=== PATIENT | male | born 1950 | race Caucasian/White ===

== ENCOUNTER 2020-05-22 19:06 | Inpatient (IN) | payer OTHER ==
[2020-05-22] VITALS (10 sets, daily range): BP systolic 115–167; BP diastolic 64–116
[~2020-05-22] VITALS: Ht 167.6 cm; Wt 64.4 kg
[2020-05-22 19:27] LABS: ABSOLUTE BASOPHILS 0.1 thou/uL (0.0-0.2); ABSOLUTE MONOCYTES 0.5 thou/uL (0.0-1.2); ABSOLUTE NEUTROPHILS 9.6 thou/uL (1.6-8.1); BASOPHILS 0.5 %; EOSINOPHILS 0.1 %; HEMATOCRIT 39.6 % (42.0-52.0); HEMOGLOBIN 13.2 gm/dL (14.0-18.0); LYMPHOCYTES 9.2 %; MCH 29.7 pg (26.0-34.0); MCHC 33.4 g/dL (28.0-37.0); MCV 88.8 fL (80.0-100.0); MONOCYTES 4.5 %; MPV 9.1 fl. (7.2-11.1); NUCLEATED RBCS 0 /100WBC; PLATELET COUNT* 258 thou/uL (150-400); POLYS 85.7 %; RBC 4.46 mil/uL (4.50-6.00); RDW-CV 13.1 % (10.5-14.5); WBC 11.2 thou/uL (4.0-11.0)
[2020-05-22] MEDS ORDERED: GLUCOPHAGE1000 MG PO (19:31)
[2020-05-22 19:36] LABS: ANION GAP 12 mmol/L (7-16); BUN 21 mg/dL (7-18); CHLORIDE 100 mmol/L (98-107); CO2 27 mmol/L (21-32); CREATININE 1.2 mg/dL (0.6-1.3); GLUCOSE 261 mg/dL (70-99); POTASSIUM 3.7 mmol/L (3.5-5.1); SODIUM 139 mmol/L (136-145)
[2020-05-22 19:38] LABS: APTT 26.8 Seconds (25.0-31.3); INR 1.1
[2020-05-22 19:42] LABS: ALBUMIN 3.9 g/dL (3.4-5.0); ALKALINE PHOSPHATASE 67 U/L (46-116); CHOLESTEROL 188 mg/dL (<200); HDL CHOLESTEROL 42 mg/dL (>40); LDL CHOLESTEROL 117 mg/dL (<100); SGOT 44 U/L (15-37); SGPT 26 U/L (30-65); TC:HDL 4.5 Ratio (Not establshd); TOTAL BILIRUBIN 0.4 mg/dL (<0.1-1.0); TRIGLYCERIDE 148 mg/dL (<150); VLDL 30 mg/dL (<40)
[2020-05-22 19:44] LABS: SERUM ASSESSMENT Clear
[2020-05-22 20:56] LABS: PLATELET ESTIMATE ADEQUATE
[2020-05-23] VITALS (27 sets, daily range): BP systolic 93–127; BP diastolic 45–75
[2020-05-23] MEDS ORDERED: PRINIVIL10 MG PO (00:56)
[2020-05-23] MEDS ORDERED: LEXAPRO 10 MG T10 M2 PO (00:58)
[2020-05-23 03:38] LABS: ABSOLUTE LYMPHOCYTES 1.4 thou/uL (0.8-5.3); ABSOLUTE MONOCYTES 0.7 thou/uL (0.0-1.2); ABSOLUTE NEUTROPHILS 7.8 thou/uL (1.6-8.1); BASOPHILS 0.3 %; EOSINOPHILS 0.1 %; HEMOGLOBIN 12.2 gm/dL (14.0-18.0); LYMPHOCYTES 14.4 %; MCH 30.5 pg (26.0-34.0); MCHC 34.7 g/dL (28.0-37.0); MCV 87.8 fL (80.0-100.0); MONOCYTES 7.2 %; MPV 8.9 fl. (7.2-11.1); NUCLEATED RBCS 0 /100WBC; PLATELET COUNT* 230 thou/uL (150-400); RBC 3.99 mil/uL (4.50-6.00); RDW-CV 12.9 % (10.5-14.5)
[2020-05-23 03:48] LABS: CALCIUM 8.2 mg/dL (8.5-10.1); CREATININE 0.7 mg/dL (0.6-1.3); POTASSIUM 3.5 mmol/L (3.5-5.1)
--- NOTE | 2020-05-23 04:32 | NUR ---
RECIEVED PT FROM URINALYSIS TECHNICIAN AT 2114H. PTCA DONE AT LAD. ON NC AT 2LPM AND TOLERATED. SINUS BRADYCARIA NOTED. SEEN BY CARDIOLOGY, ASKED FOR HOSPITALIST CONSULT. INFORMED HIMS WITH ORDER CARRIED OUT. PT STILL COMPLAINED OF CHEST PAIN AFTER HYDROCODONE, CARDIOLOGY INFORMED WITH ORDER CARRIED OUT. PRN MORPHIN GIVEN, PT RESTED WELL. NO BLEEDING NOTED. CONTINUE MONITORING AND TOWARD GOALS.
--- NOTE | 2020-05-23 10:31 | CARD ---
[address] [address] CARDIAC CATH REPORT Name: BLAZEULISSES Room: 002 ADM IN M.R.#: [id number] Admission: 05/22/20 Attend Phys: Aravind Munson MD, Discharge: Date of : 54 Report #: [id number] THIS REPORT FOR: //name// cc: PHOEBE - Family physician unknown FAM - Family physician unknown ~ APPROVED REPORT Study performed: 05/22/2020 19:10:45 Patient Details Patient Status: ED Room #: ICU-2 The patient is a 69 year-old male Event Personnel Aravind Munson Edger Hand, Kelsey Marquez RN Drying Room Attendant, Margarito Fernandez FLORIST MANAGER Scrub, Sivan Sebastian RTR Monitor Procedures Performed Art Access - R femoral artery, Left Heart Cath w/or w/o Coronaries LHC, ANNA Place w/wo Plasty Single LAD , Hemostasis w/ Angioseal Indication STEMI Risk Factors Hypertension, Diabetes Admission/Lab Medications/Medications given during procedure Angiomax IV 10.5 ml, Angiomax Drip IV 24.85 ml per hr, Angiomax IV 3 ml, Effient PO 60 mg, Aspirin PO 162 mg Procedure Narrative The patient was brought emergently to the Cardiac Catheterization Laboratory and was prepped and draped in a sterile manner. The right femoral was infiltrated with 2% Lidocaine subcutaneous anesthesia. A 6F [place] sheath was inserted into the right femoral artery. Coronary angiography was performed using coronary diagnostic catheters. The right coronary system was accessed and visualized with a 6F JR4 catheter. The left coronary system was accessed and visualized with a 6F JL4 catheter. The left ventricle was accessed and visualized with a 6F Pigtail catheter. Left ventricular/Aortic Valve gradient assessed via catheter pullback. Left ventriculogram was performed in GAMBOA projection. Pre-[place] [address] CARDIAC CATH REPORT Name: ULISSES THAKUR Room: [address] IN M.R.#: [id number] Admission: 05/22/20 Attend Phys: Aravind Munson MD, Discharge: Date of : 54 Report #: [id number] was performed . Closure device was deployed with a 6 Fr Angioseal STS. The patient tolerated the procedure well and there were no complications associated with the procedure. There was no hematoma. Intraoperative Conscious Sedation Sedation start time: 19:57 Case end Time: 20:49 Fentanyl 50 mcg Versed 3 mg Fluoro Time: 14 minutes Dose: DAP [id number] cGycm2 2130 mGy Contrast Type and Amount: Visipaque 220 ml Diagnostic Cath Left Main 40% distal narrowing LAD 100% mid LAD occlusion with prominent intraluminal thrombus with 50% proximal LAD narrowing and and multiple areas of 40% distal LAD narrowing; there was 90% stenosis in the proximal portion of moderate-sized first diagonal branch Circumflex Prominent though nondominant vessel with 90% mid vessel stenosis Right Coronary Dominant vessel with 40% proximal and distal narrowings Left Ventriculography The left ventricle is normal in size with contractility. The left ventricular ejection fraction is estimated to be 35-40%. Left ventricular wall motion abnormalities are present. There is no mitral insufficiency. There is akinesis of the anteroapical wall segment Hemodynamics The aortic pressure is 122/56 mmHg with a mean of 67 mmHg. The left ventricular pressure is 121/-1 mmHg with a mean of mmHg. The left ventricular end diastolic pressure is 23 mmHg. PCI Technique Lesion Anticoagulation was achieved with Angiomax. Patient was preloaded with Angiomax IV 10.5 ml. Percutaneous coronary intervention was performed on the mid left anterior descending artery segment. The lesion stenosis prior to intervention was 100% with LINDY 0 flow. A 6F XB LAD 3.5 Guide Catheter was used to engage the lm ostium. A ProwaterFlex 180CM Interventional Guidewire was [place] [address] CARDIAC CATH REPORT Name: ULISSES THAKUR Room: [address] IN .R.#: [id number] Admission: 05/22/20 Attend Phys: Aravind Munson MD, Discharge: Date of : 54 Report #: [id number] BALLOON DILATION A Balloon catheter Trek RX 2.25 X 12 was inserted and inflated up to 12.00atm for 11seconds. Additional Inflation: 12.00atm for 15seconds. STENT DEPLOYMENT A drug-eluting stent Xience Zonia 2.37Q42sq was inserted and inflated up to 12.00atm for 22seconds. Additional Inflation: 14.00atm for 14seconds. POST STENT DEPLOYMENT BALLOON DILATION A Balloon catheter NC Euphora 2.25x8 was inserted and inflated up to 18.00atm for 19seconds. Additional Inflation: 22.00atm for 15seconds. Additional Inflation: 15.00atm for 12seconds. Final angiography reveals 10 % stenosis with LINDY 3 flow. Conclusion 1. Acute anterior wall ST segment elevation myocardial infarction 2. Severe coronary artery disease characterized by the following: A 100% mid LAD occlusion with prominent intraluminal thrombus; there was 50% proximal with 40% distal LAD narrowing; there was 90% stenosis of the proximal portion of a moderate-sized first diagonal branch B prominent though nondominant circumflex with 90% mid vessel stenosis C dominant right coronary with 40% proximal and distal narrowings 2. Moderate impairment in global LV function, estimated ejection fraction 35 - 40% with anteroapical akinesis 4. Moderate elevation of left ventricular end-diastolic pressure at rest 5. Successful PCI with deployment of a drug-eluting stent at the site of 100% mid LAD occlusion with 10% residual narrowing LINDY-3 flow to the distal vessel and no residual thrombus. Recommendations Cardiac [place] [address] CARDIAC CATH REPORT Name: ULISSES THAKUR Room: [address] IN M.R.#: [id number] Admission: 05/22/20 Attend Phys: Aravind Munson MD, Discharge: Date of : 54 Report #: [id number] Aggressive Medical Therapy Medications Administered Aspirin (any) Prasugrel Diagnostic Cath Approved by: Aravind Munson MD Date/Time: 05/23/2020 10:27:27 <ELECTRONICALLY SIGNED> By: Aravind Munson MD, FACC 05/23/20 103 30 103Aravind Munson MD, FACC /INF
--- NOTE | 2020-05-23 12:20 | 2DMMODE ---
[place] [address] 2 D/M-MODE ECHOCARDIOGRAM Name: ULISSES THAKUR Room: 002-P ADM IN .R.#: [id number] Admission: 05/22/20 Attend Phys: Raman Dillard Discharge: Date of : 54 Date of Service: 05/23/20 1220 Report #: [id number] THIS REPORT FOR: cc: FAM - Family physician unknown FAM - Family physician unknown Aravind Munson MD [facility] ~ APPROVED REPORT Study performed: 05/23/2020 09:35:57 EXAM: Comprehensive 2D, Doppler, and color-flow Echocardiogram Patient Location: In-Patient Room #: 002 Status: routine BSA: 1.73 HR: 65 bpm BP: 96/61 mmHg Rhythm: NSR Other Information Study Quality: Good Indications Acute LA 2D Dimensions IVSd: 9.22 (7-11mm) LVOT Diam: 20.10 (18-24mm) LVDd: 48.80 mm PWd: 9.91 (7-11mm) Ascending Ao: 25.94 (22-36mm) LVDs: 28.20 (25-40mm) Aortic Root: 37.56 mm Volumes Left Atrial Volume (Systole) LA ESV Index: 30.40 mL/m2 Aortic Valve AoV Peak Nik.: 1.23 m/s AO Peak Gr.: 6.10 mmHg LVOT Max P.68 mmHg AO Mean Gr.: 3.36 mmHg LVOT Mean P.14 mmHg LVOT Max V: 1.08 m/s AO V2 VTI: 26.09 cm LVOT Mean V: 0.66 m/s ELIAZAR (VTI): 2.87 cm2 LVOT V1 VTI: 23.60 [place] [address] 2 D/M-MODE ECHOCARDIOGRAM Name: ULISSES THAKUR Room: [address] IN M.R.#: [id number] Admission: 05/22/20 Attend Phys: Raman Dillard Discharge: Date of : 54 Date of Service: 05/23/20 1220 Report #: [id number] Mitral Valve E/A Ratio: 1.13 MV Decel. Time: 243.27 ms MV E Max Nik.: 0.62 m/s MV PHT: 70.55 ms MVA (PHT): 3.12 cm2 TDI E/Lateral E': 5.64 E/Medial E': 6.20 Medial E' Nik.: 0.10 m/s Lateral E' Nik.: 0.11 m/s Pulmonary Valve PV Peak Nik.: 0.92 m/s PV Peak Gr.: 3.38 mmHg Tricuspid Valve RAP Estimate: 5.00 mmHg TR Peak Gr.: 29.36 mmHg RVSP: 34.00 mmHg PA Pressure: 34.00 mmHg Left Ventricle The left ventricle is normal size. Regional wall motion abnormalities are noted with distal septal and anteroapical hypo-akinesis. There is normal left ventricular wall thickness. Left ventricular systolic function is moderately decreased. LVEF is 40%. The left ventricular diastolic function is normal. Right Ventricle The right ventricle is normal size. The right ventricular systolic function is normal. Atria The left atrium size is normal. The right atrium size is normal. Aortic Valve The aortic valve is normal in structure. Trace aortic regurgitation. There is no aortic valvular stenosis. Mitral Valve The mitral valve is normal in structure. Mild mitral regurgitation. No evidence of mitral valve stenosis. Tricuspid Valve The tricuspid valve is normal in structure. Mild tricuspid regurgitation. [place] [address] 2 D/M-MODE ECHOCARDIOGRAM Name: ULISSES THAKUR Room: 002-P [facility] IN [facility].#: [id number] Admission: 05/22/20 Attend Phys: Raman Dillard Discharge: Date of : 54 Date of Service: 05/23/20 1220 Report #: [id number] Pulmonic Valve The pulmonary valve is normal in structure. Trace pulmonic regurgitation. Great Vessels The aortic root is normal in size. IVC is normal in size and collapses >50% with inspiration. Pericardium There is no pericardial effusion. <Conclusion> The left ventricle is normal size. There is normal left ventricular wall thickness. Left ventricular systolic function is moderately decreased. LVEF is 40%. The left ventricular diastolic function is normal. The right ventricle is normal size. The left atrium size is normal. The aortic valve is normal in structure. The mitral valve is normal in structure. Mild mitral regurgitation. The tricuspid valve is normal in structure. Mild tricuspid regurgitation. Mild pulmonary hypertension. IVC is normal in size and collapses >50% with inspiration. There is no pericardial effusion. Regional wall motion abnormalities are noted with distal septal and anteroapical hypo-akinesis. <ELECTRONICALLY SIGNED> By: Aravind Munson MD, FACC 05/23/20 1220 1220 1220 Aravind Munson MD, FACC /INF
--- NOTE | 2020-05-23 14:32 | EKG ---
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
--- NOTE | 2020-05-23 15:22 | NUR ---
ICU rounds: Cath yesterday, Pt to have another cardiology procedure tomorrow. Anticipate dc on Wednesday. CM spoke with card nurse, plan is for Pt to dc on Wednesday, then f/u with Dr Munson next week. 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 Independent, no DME. No hx of or SNF. Cards to provide Pt with Effient samples and Good Rx card, and schedule f/u visit for next week. 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 Discussed plans with Pt, Pt says he is in agreement with POC. Following.
--- NOTE | 2020-05-23 16:18 | CON ---
[address] [address] CONSULTATION Name: ULISSES THAKUR Room: [address] ADM IN M.R.#: [id number] Admission: 05/22/20 Attend Phys: Aravind Munson MD, Discharge: Date of : 54 Report #: [id number] THIS REPORT FOR: //name// cc: FAM - Family physician unknown FAM - Family physician unknown ~ THIS REPORT FOR: //name// CC: PHOEBE unknown Aravind Munson DATE OF SERVICE: 05/22/2020 CARDIOLOGY CONSULTATION The patient admitted to the ICU 2 on 05/22/2020. HISTORY OF PRESENT ILLNESS: The patient is a 69-year-old [place] male from [place]. He developed chest pain this afternoon, which persisted and he was ultimately transferred to [facility] Emergency Room by paramedics with electrocardiographic evidence suggesting acute anterior injury. This persisted in the ER and he received aspirin and nitrates. The pain did not resolve and EKG changes persisted. He describes prior problems of diabetes and hypertension, but denies cigarette smoking. He describes taking metformin and antihypertensive medicine as well as psychotropic medicine, which he is uncertain. PHYSICAL EXAMINATION: GENERAL: Demonstrated an acutely distressed middle-aged Fijian male. VITAL SIGNS: Blood pressure 130/70, pulse rate 74, respirations 18 per minute. NECK: Jugular venous pressure normal. CHEST: Clear. CARDIAC: Revealed normal first and second heart sounds with a probable S4 gallop. ABDOMEN: Soft. EXTREMITIES: Without edema with intact femoral, pedal, and radial pulses. EKG reveals sinus rhythm with acute anterior ST segment elevation myocardial infarction. IMPRESSION: 1. Acute anterior wall ST-segment elevation myocardial infarction. 2. Diabetes mellitus. 3. [place] [address] CONSULTATION Name: ULISSES THAKUR Room: [address] IN M.R.#: [id number] Admission: 05/22/20 Attend Phys: Aravind Munson MD, Discharge: Date of : 54 Report #: [id number] The patient was taken to the cardiac catheterization suite and underwent a coronary angiography, which revealed 100% mid LAD occlusion with prominent intraluminal thrombus. There was 40% proximal LAD narrowing and 90% first diagonal stenosis. There was 80% to 90% mid circumflex narrowing. The right coronary artery was dominant with 40% proximal and distal narrowing. In the context of persistent pain and evidence for anterior wall ST-segment elevation myocardial infarction, I performed acute percutaneous coronary intervention on the LAD, deploying one 2.25 x 15 mm Xience drug-eluting stent to 14 atmospheres and post-dilated with a 2.25 x 8 mm NC Euphora inflated to 20-22 atmospheres with 10% residual narrowing and LINDY 3 flow of the distal vessel. I then performed left ventriculography, which revealed akinetic anteroapical segment. Estimated ejection fraction of 35%. The patient received Angiomax bolus and infusion, which was continued for 4 hours post-procedurally. He received dual antiplatelet therapy in the form of aspirin and Effient with beta blockade, GILMAR inhibition, and statin ordered. He was transferred to the ICU in satisfactory condition. Critical care time is 40 minutes from 20:30 to 21:10 on 05/22/2020. <ELECTRONICALLY SIGNED> By: Aravind Munson MD, FACC 05/23/20 1618 2113 [id number] Munson MD, FACC /nt
--- NOTE | 2020-05-23 18:50 | NUR ---
ASSESSMENT CHARTED. VSS. UP IN ROOM SBA. NO REPORTS OF CHEST PAIN. 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 PATIENT HAS BEEN UPDATED. CARDIAC CATH SCHEDULED FOR TOMORROW. CONSENT SIGNED AND ON THE CHART. NO OTHER EVENTS DURING THIS SHIFT.
[2020-05-24] VITALS (33 sets, daily range): BP systolic 83–120; BP diastolic 40–67
[2020-05-24 02:06] LABS: GLYCOHEMOGLOBIN (HGB A1C) 6.9 % (4.8-5.6)
[2020-05-24 04:06] LABS: HEMATOCRIT 34.1 % (42.0-52.0); MCH 30.8 pg (26.0-34.0); MCHC 35.1 g/dL (28.0-37.0); MCV 87.7 fL (80.0-100.0); MPV 9.2 fl. (7.2-11.1); RBC 3.89 mil/uL (4.50-6.00); RDW-CV 12.7 % (10.5-14.5); WBC 9.7 thou/uL (4.0-11.0)
[2020-05-24 04:18] LABS: APTT 26.8 Seconds (25.0-31.3); INR 1.1; PROTIME 10.9 Seconds (9.20-11.50)
[2020-05-24 04:36] LABS: ALBUMIN 3.3 g/dL (3.4-5.0); CREATININE 0.6 mg/dL (0.6-1.3); MAGNESIUM 1.2 mg/dL (1.8-2.4); POTASSIUM 3.5 mmol/L (3.5-5.1); TOTAL BILIRUBIN 0.6 mg/dL (<0.1-1.0); TOTAL PROTEIN 6.2 g/dL (6.4-8.2)
[2020-05-24 04:57] LABS: TROPONIN-I LEVEL 23.7 ng/mL (<0.06)
--- NOTE | 2020-05-24 06:46 | NUR ---
PT. PROGRESSING TOWARDS GOALS. NO COMPLAINTS OF CHEST PAIN THIS SHIFT. PT. ANXIOUS ABOUT PROCEDURE TODAY, SAID "THIS STUFF IS SCARY". REASSURANCE PROVIDED. RIGHT GROIN CATH SITE REMAINS CLEAN/DRY/INTACT. PT. TO NPO AFTER BREAKFAST. CALL LIGHT IN REACH, WILL CONTINUE TO MONITOR.
--- NOTE | 2020-05-24 08:56 | NUR ---
Pt does not qualify for Medicaid, Pt is over resources
--- NOTE | 2020-05-24 16:16 | EKG ---
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1950 Requested By: Aravind Munson Order Number: [id number] Reading MD: Yadiel Mitchell Measurements Intervals [place] Rate: 57 P: 39 VT: 137 QRS: -44 QRSD: 94 T: 82 QT: 470 QTc: 458 Interpretive Statements Sinus rhythm Left anterior fascicular block Probable anteroseptal infarct, recent Compared to ECG 05/22/2020 19:16:35 Left anterior fascicular block now present Left-axis deviation no longer present Myocardial infarct finding still present Electronically Signed On 05-24-2020 16:16:11 CDT by Yadiel Mitchell [email or web address] <ELECTRONICALLY SIGNED> By: Yadiel Mitchell MD, FACC 05/24/20 1616 1352 1352 Yadiel Mitchell MD, [facility] /EPI
--- NOTE | 2020-05-24 19:44 | NUR ---
PT RECEIVED FROM CATH AT 1315, VSS. RT GROIN SITE DSG C/D/I, PERIPHERAL PULSES PRESENT. DENIES PAIN. NS AT 100 MLS/HR. TOLERATING DIET. VOIDING PER URINAL. PLAN DC [place].
[2020-05-25] VITALS (13 sets, daily range): BP systolic 92–120; BP diastolic 50–63
[2020-05-25 04:01] LABS: HEMATOCRIT 29.9 % (42.0-52.0); HEMOGLOBIN 10.4 gm/dL (14.0-18.0); MCH 30.6 pg (26.0-34.0); MCHC 34.9 g/dL (28.0-37.0); MCV 87.9 fL (80.0-100.0); RBC 3.41 mil/uL (4.50-6.00); RDW-CV 12.5 % (10.5-14.5); WBC 8.4 thou/uL (4.0-11.0)
[2020-05-25 04:14] LABS: ALBUMIN 2.9 g/dL (3.4-5.0); CALCIUM 7.8 mg/dL (8.5-10.1); CREATININE 0.8 mg/dL (0.6-1.3); MAGNESIUM 1.5 mg/dL (1.8-2.4); POTASSIUM 3.9 mmol/L (3.5-5.1); TOTAL BILIRUBIN 0.6 mg/dL (<0.1-1.0); TOTAL PROTEIN 5.9 g/dL (6.4-8.2)
[2020-05-25 04:19] LABS: TROPONIN-I LEVEL 16.35 ng/mL (<0.06)
--- NOTE | 2020-05-25 06:52 | NUR ---
ASSUMED PATIENT CARE AT 1900. ASSESMENTS COMPLETED CHARTED. CARDIAC MONITORING IN PLACE FOR PATIENT SAFETY. FALL PRECAUTIONS IN PLACE FOR PATIENT SAFETY. PATIENT REPORTED CHEST PAIN IN AROUND 0530. STAT EKG OBTAINED, SEE CHART FOR DETAILS. CONCRETE POURER NOTIFIED, MEDICATIONS GIVEN PER PHYSICIAN ORDER, SEE EMAR FOR DETAILS. PATIENT REPORTED REDUCTION IN PAIN. CLWR.
[2020-05-25] MEDS ORDERED: ASA81BEC PO (09:10)
[2020-05-25] MEDS ORDERED: LIPITOR40 MG PO (09:11)
[2020-05-25] MEDS ORDERED: CARVEDILOL3.125 MG PO (09:13)
[2020-05-25] MEDS ORDERED: EFFIENT10 MG PO (09:14)
[2020-05-25] MEDS ORDERED: NITROSTAT0.4 M1 PO (09:16)
--- NOTE | 2020-05-25 11:40 | D ---
[facility] [address] [place] [address] DISCHARGE SUMMARY Name: ULISSES THAKUR Room: [address] ADM IN M.R.#: [id number] Admission: 05/22/20 Attend Phys: Aravind Munson MD, Discharge: Date of : 54 Report #: [id number] THIS REPORT FOR: //name// cc: FAM - Family physician unknown FAM - Family physician unknown ~ THIS REPORT FOR: //name// CC: FAM unknown Aravind Munson DATE OF SERVICE: 05/22/2020 FINAL DISCHARGE DIAGNOSES: 1. Acute anterior wall ST-segment elevation myocardial infarction. 2. Complex multivessel coronary artery disease. 3. Status post PCI to the LAD and subsequently the circumflex. 4. Ischemic cardiomyopathy. 5. Hyperlipidemia. 6. Hypertension. PROCEDURES: -- 1. On 05/22/2020--Left heart catheterization, left ventriculography, selective coronary arteriography and percutaneous coronary intervention with deployment of drug-eluting stent in the mid LAD. 2. On 05/24/2020 -- left heart catheterization, selective coronary arteriography and percutaneous coronary intervention with deployment of a drug-eluting stent in the mid circumflex. 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 On transit in the ER, he demonstrated marked ST segment elevation over the anterior precordium compatible with acute anterior wall ST-segment elevation myocardial infarction. He was taken emergently to the chemical laboratory scientist and had a totally occluded LAD, which I recanalized, deploying 1 drug-eluting stent in the mid LAD. He was also noted to have significant first diagonal, which was a small vessel and mid circumflex prominent vessel disease. He did clinically well with a peak troponin of 75. Contrast ventriculography revealed an ejection fraction of approximately 35% with echocardiographic evaluation suggesting 35-40%. On 05/24/2020, I performed recatheterization with stenting of the 90% stenosis in the prominent circumflex. The previously deployed L[place] [address] DISCHARGE SUMMARY Name: ULISSES THAKUR Room: [address] IN ..#: [id number] Admission: 05/22/20 Attend Phys: Aravind Munson MD, Discharge: Date of : 54 Report #: [id number] The patient ambulated in the halls without difficulty with good hemostasis at the right femoral site of catheterization. Laboratory data on 05/25/2020 revealed sodium 140, potassium 3.9, BUN 11, creatinine 0.8, glucose 128. Hemoglobin 10.4, white blood cell count 8400 with 188,000 platelets. DISCHARGE MEDICATIONS: The patient was discharged to home on the following medications: Aspirin 81 mg daily, atorvastatin 40 mg daily, carvedilol 3.125 mg b.i.d., Lexapro 10 mg daily, metformin 1000 mg b.i.d. to be resumed on 05/27/2020, prasugrel or Effient 10 mg daily with 60 mg dose given periprocedurally on 05/22/2020 and p.r.n. sublingual nitroglycerin. He is scheduled to return to see our nurse practitioner on 05/30/2020 at 1300 and after review by Lavonne Vidal, if the patient is clinically stable, he would plan to return to [place]. Therefore, the patient is discharged to home in stable condition on the aforementioned medications with followup as iterated above. <ELECTRONICALLY SIGNED> By: Aravind Munson MD, FACC 05/25/20 1140 0935 [id number] Munson MD, FAC /nt
--- NOTE | 2020-05-25 12:10 | CARD ---
[address] [address] CARDIAC CATH REPORT Name: BLAZEULISSES Room: 002-P ADM IN M.R.#: [id number] Admission: 05/22/20 Attend Phys: Aravind Munson MD, Discharge: Date of : 54 Report #: [id number] THIS REPORT FOR: //name// cc: PHOEBE - Family physician unknown FAM - Family physician unknown ~ APPROVED REPORT Study performed: 05/24/2020 11:27:42 Patient Details Patient Status: In-Patient Room #: ICU The patient is a 69 year-old male Event Personnel Aravind Munson Branch Operations Coordinator, Aravind Munson Splitter Operator, Cassie Pena RN, Jose F Ahn STREETCAR DISPATCHER Monitor, Margarito Fernandez STREETCAR DISPATCHER Scrub Procedures Performed Left heart catheterization selective coronary arteriography and PCI with deployment of drug-eluting stent at the site of 90% mid circumflex stenosis Indication Unstable angina Risk Factors Hypercholesterolemia, Hypertension Previous Procedures/Diagnoses Previous PCI, Previous PR Procedure Narrative The patient was brought electively to the Cardiac Catheterization Laboratory and was prepped and draped in a sterile manner. The right femoral was infiltrated with 2% Lidocaine subcutaneous anesthesia. A [place] 6 FR sheath was inserted into the right femoral artery. Coronary angiography was performed using coronary diagnostic catheters. The right coronary system was accessed and visualized with a Diagnostic - JR4 catheter. The left coronary system was accessed and visualized with a Diagnostic - JL4 catheter. The left ventricle was accessed and visualized with a Diagnostic - STR PIG catheter. Left ventricular/Aortic Valve gradient assessed via catheter pullback. Pre-demployment femoral angiogram was performed . Closure device was deployed with a Fr Angioseal STS 6Fr. [place] [address] CARDIAC CATH REPORT Name: ULISSES THAKUR Room: [address] IN [facility].#: [id number] Admission: 05/22/20 Attend Phys: Aravind Munson MD, Discharge: Date of : 54 Report #: [id number] tolerated the procedure well and there were no complications associated with the procedure. There was no hematoma. Intraoperative Conscious Sedation Sedation start time: 1210 Case end Time: 1253 Fentanyl 50 mcg Versed 2 mg Fluoro Time: 13.4 minutes Dose: DAP 14767 cGycm2 1246 mGy Contrast Type and Amount: Visipaque 200 ml Diagnostic Cath Left Main 40% distal narrowing LAD 40% proximal and distal narrowing with a widely patent mid LAD stent Diagonal 1 90% proximal and mid vessel stenosis of this modest sized first diagonal branch Circumflex 90% diffuse mid circumflex stenosis, this being a prominent though nondominant vessel Right Coronary Dominant vessel with 40% proximal and 70% distal narrowing Left Ventriculography Left Ventriculography was not performed. Hemodynamics The aortic pressure is 90/50 mmHg with a mean of 55 mmHg. The left ventricular pressure is 90/7ed mmHg with a mean of mmHg. The left ventricular end diastolic pressure is 10 mmHg. There was no gradient across the aortic valve upon pullback. PCI Technique Lesion Anticoagulation was achieved with Angiomax. Patient was preloaded with Angiomax IV 10 ml. Percutaneous coronary intervention was performed on the mid circumflex artery segment. The lesion stenosis prior to intervention was 90% with LINDY 3 flow. A 6FR LAUNCHER JL 3.5 Guide Catheter was used to engage the ostium. A IG: BMW 190cm Interventional Guidewire was used to cross the lesion. BALLOON DILATION A Balloon catheter Euphora SC 2.5x15mm was inserted and inflated up to 14.00atm for 17seconds. Additional Inflation: 14.00atm for 11seconds. [place] [address] CARDIAC CATH REPORT Name: ULISSES THAKUR Room: [address] IN [facility]#: [id number] Admission: 05/22/20 Attend Phys: Aravind Munson MD, Discharge: Date of : 54 Report #: [id number] A stent Allen RX Stent 2.91i28ex was inserted and inflated up to 12.00atm for 12seconds. Additional Inflation: 14.00atm for 12seconds. Final angiography reveals 0 % stenosis with LINDY 3 flow. Conclusion 1. Significant multivessel coronary artery disease characterized by the following: A 40% proximal and distal LAD narrowing with a widely patent mid LAD stent; there was 90% proximal and mid vessel stenosis of a modest sized first diagonal branch B 40% distal left main coronary narrowing C 90% diffuse stenosis of the midportion of the prominent though nondominant circumflex D 40% proximal and 70% distal narrowing of the dominant right coronary 2. Normal left-sided hemodynamic study 3. Successful PCI with deployment of a drug-eluting stent at the site of 90% mid circumflex stenosis with 0% residual narrowing and LINDY-3 flow to the distal vessel Recommendations Cardiac Risk Reduction Program Aggressive Medical Therapy Medications Administered Prasugrel Diagnostic Cath Approved by: Aravind Munson MD Date/Time: 05/25/2020 12:05:38 <ELECTRONICALLY SIGNED> By: Aravind Munson MD, [facility] 05/25/20 1209 1209 1209Aravind Munson MD, FACC /INF
--- NOTE | 2020-05-25 12:35 | NUR ---
DISCHARGE EDUCATION PROVIDED. IV LINES OUT. CAB WAS CALLED AND PT LEFT THE UNIT AT 1210.
--- NOTE | 2020-05-27 09:51 | EKG ---
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[employer]: [place] : 1950 Requested By: Aravind Munson Order Number: [id number] Reading MD: Aravind Munson Measurements Intervals [place] Rate: 64 P: 45 W[place]: 137 QRS: -46 QRSD: 95 T: 90 QT: 449 QTc: 464 Interpretive Statements Sinus rhythm Left anterior fascicular block Probable anteroseptal infarct, recent Baseline wander in lead(s) V4,V6 Compared to ECG 05/24/2020 13:52:16 No significant changes Electronically Signed On 05-27-2020 9:51:20 CDT by Aravind Munson [email or web address] <ELECTRONICALLY SIGNED> By: Aravind Munson MD, [facility] 05/27/20 0951 0535 Aravind Munson MD, [facility] /EPI
--- NOTE | 2020-05-27 09:51 | EKG ---
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: [place] : 1950 Requested By: Aravind Munson Order Number: [id number] Sulema MD: Aravind Munson Measurements Intervals [place] Rate: 65 P: 46 [place]: 142 QRS: -47 QRSD: 95 T: 104 QT: 457 QTc: 476 Interpretive Statements Sinus rhythm Left anterior fascicular block Probable anteroseptal infarct, recent Compared to ECG 05/25/2020 05:35:21 No significant changes Electronically Signed On 05-27-2020 9:51:29 CDT by Aravind Munson [email or web address] <ELECTRONICALLY SIGNED> By: Aravind Munson MD, [facility] 05/27/20 0951 0546 0546 Aravind Munson MD, [facility] /EPI
== END 2020-05-25 12:10 | disposition home or self-care (01) | DRG 247 ==
LOC: M.ERS 19:06 → M.CL 19:06 → M.ERS 19:35 → M.CL 19:57 → M.TBA-CV 19:57 → M.ICU 21:20 → M.TBA-CV 21:20 → M.CL 21:20 → M.ICU 21:29
PROVIDERS: Internal Medicine; Personal Emergency Response Attendant; ADMIT Internal Medicine; ATTEND Internal Medicine
PROC: 027034Z Dilation of Coronary Artery, One Artery with Drug-eluting Intraluminal Device, Percutaneous Approach (ICD-10-PCS; principal; 2020-05-22)
PROC: B211YZZ Fluoroscopy of Multiple Coronary Arteries using Other Contrast (ICD-10-PCS; principal; 2020-05-22)
PROC: 4A023N7 Measurement of Cardiac Sampling and Pressure, Left Heart, Percutaneous Approach (ICD-10-PCS; principal; 2020-05-22)
PROC: B215YZZ Fluoroscopy of Left Heart using Other Contrast (ICD-10-PCS; principal; 2020-05-22)
PROC: B211YZZ Fluoroscopy of Multiple Coronary Arteries using Other Contrast (ICD-10-PCS; 2020-05-24)
PROC: 027034Z Dilation of Coronary Artery, One Artery with Drug-eluting Intraluminal Device, Percutaneous Approach (ICD-10-PCS; 2020-05-24)
PROC: 4A023N7 Measurement of Cardiac Sampling and Pressure, Left Heart, Percutaneous Approach (ICD-10-PCS; 2020-05-24)
DX: I21.09 ST elevation (STEMI) myocardial infarction involving other coronary artery of anterior wall (principal); E11.9 Type 2 diabetes mellitus without complications; I10 Essential (primary) hypertension; I25.10 Atherosclerotic heart disease of native coronary artery without angina pectoris; I25.5 Ischemic cardiomyopathy; E78.5 Hyperlipidemia, unspecified; F32.9 Major depressive disorder, single episode, unspecified; Z79.899 Other long term (current) drug therapy; Z79.84 Long term (current) use of oral hypoglycemic drugs